=== PATIENT | female | born 1940 | race Caucasian/White ===

== ENCOUNTER 2024-09-17 13:23 | Emergency (ER) | payer MEDICARE, OTHER ==
[~2024-09-17] VITALS: Ht 167.6 cm; Wt 91.1 kg
[~2024-09-17 13:23] MED LIST: ALPRAZOLAM0.5 MG PO; LEXAPRO10 MG PO; LISINOPRIL-HCT1 EACH PO; VESICARE10 MG PO; VITAMIN D2000 UNI1 PO
[2024-09-17] MEDS ORDERED: AMLODIPINE BESYL5 MG PO (13:45)
[2024-09-17] MEDS ORDERED: BAYER CHEWABLE81 MG PO (13:45)
[2024-09-17] MEDS ORDERED: AMITRIPTYLINE H25 MG PO (13:45)
[2024-09-17] MEDS ORDERED: GABAPENTIN100 MG PO (13:46)
[2024-09-17] MEDS ORDERED: TRIMETHOPRIM100 MG PO (13:47)
[2024-09-17] MEDS ORDERED: ADVAIR HFA 115-12 GM (13:47)
[2024-09-17] MEDS ORDERED: PHENTERMINE HCL30 MG PO (13:47)
[2024-09-17] MEDS ORDERED: ACYCLOVIR400 MG PO (13:47)
[2024-09-17] MEDS ORDERED: ALPRAZOLAM0.25 MG PO (13:47)
[2024-09-17] MEDS ORDERED: LINZESS145 MCG PO (13:48)
[2024-09-17] MEDS ORDERED: LISINOPRIL40 MG PO (13:48)
[2024-09-17] MEDS ORDERED: LEVOTHYROXINE50 MCG PO (13:48)
[2024-09-17 14:36] LABS: BASOPHILS 0.5 % (0-2); EOSINOPHILS 0.2 % (0-6); HEMATOCRIT 36.7 % (35.0-50.0); HEMOGLOBIN 12.5 g/dL (12.0-18.0); LYMPHOCYTES 24.2 % (24-44); MCH 32.3 (27-36); MCHC 34.2 g/dl (30-36); MCV 94.5 fl (81-99); MONOCYTES 15.4 % (0-12); NEUTROPHILS 59.7 % (39-80); PLATELET COUNT 133 K/uL (140-440); RBC 3.88 M/ul (4.3-5.7); RDW 12.7 (10.5-15.0)
[2024-09-17 14:51] LABS: ALBUMIN 3.4 g/dL (3.4-5.0); ALBUMIN/GLOBULIN RATIO 1.06 (1.1-2.4); BILIRUBIN, TOTAL 0.2 mg/dL (0.2-1.0); BUN/CREATININE RATIO 15.38 (6.0-28.6); CALCIUM 9.2 mg/dL (8.5-10.1); CREATININE, SERUM 1.04 mg/dL (0.55-1.02); PROTEIN, TOTAL 6.6 g/dL (6.4-8.2)
[2024-09-17 14:52] LABS: CORONAVIRUS COVID-19 AG POSITIVE (NEGATIVE); INFLUENZA A AG NEGATIVE (NEGATIVE); INFLUENZA B AG NEGATIVE (NEGATIVE)
[2024-09-17] MEDS ORDERED: PAXLOVID 300-11 EAC1 PO (16:07)
[2024-09-17 16:25] VITALS: BP 143/74
== END 2024-09-17 16:25 | disposition home or self-care (01) ==
LOC: ED 13:23
PROVIDERS: Emergency Medicine
DX: U07.1 COVID-19 (principal); E03.9 Hypothyroidism, unspecified; I10 Essential (primary) hypertension; Z79.899 Other long term (current) drug therapy; Z79.82 Long term (current) use of aspirin; Z79.51 Long term (current) use of inhaled steroids; Z88.1 Allergy status to other antibiotic agents; Z88.8 Allergy status to other drugs, medicaments and biological substances
CPT/HCPCS: 36415; 80053; 85025; 85060; 99283